=== PATIENT | female | born 1970 | race Two or more races ===

== ENCOUNTER 2019-10-01 07:52 | Outpatient (CLI) | payer OTHER ==
[~2019-10-01 07:52] MED LIST: ENALAPRIL MALE2.5 MG PO; FEMARA2.5 MG PO; GLIMEPIRIDE2 M1 PO; GLUMETZA1000 MG PO; [UNRECOGNIZED DRUG - OTHER] PO
[2019-10-02] MEDS ORDERED: PERCOCET 5-3251 EACH PO (12:01)
== END 2019-10-01 07:59 | disposition home or self-care (01) ==
LOC: LAB 07:52
DX: E11.9 Type 2 diabetes mellitus without complications (principal)

== ENCOUNTER 2019-10-02 07:16 | Day surgery (SDC) | payer OTHER ==
[2019-10-02] MEDS ORDERED: PERCOCET 5-3251 EACH PO (12:01)
== END 2019-10-02 14:30 | disposition home or self-care (01) ==
LOC: CIR.AMB 07:16 → EDBD 09:45 → CIR.AMB 14:30
DX: C73 Malignant neoplasm of thyroid gland (principal)